=== PATIENT | male | born 1935 | race Caucasian/White ===

== ENCOUNTER → 2020-12-18 | Outpatient (CLI) | payer MEDICARE | LOC: KOH-I 10:06 | DX: M25.561 Pain in right knee (principal); I25.10 Atherosclerotic heart disease of native coronary artery without angina pectoris; I10 Essential (primary) hypertension; E03.9 Hypothyroidism, unspecified; E66.9 Obesity, unspecified; M17.9 Osteoarthritis of knee, unspecified; Z95.0 Presence of cardiac pacemaker; E11.9 Type 2 diabetes mellitus without complications; Z79.4 Long term (current) use of insulin; M17.11 Unilateral primary osteoarthritis, right knee; M25.461 Effusion, right knee | CPT/HCPCS: 73564 ==

== ENCOUNTER → 2021-08-13 | Outpatient (CLI) | payer MEDICARE | LOC: KOH-I 08:00 | DX: R31.9 Hematuria, unspecified (principal); R41.82 Altered mental status, unspecified; N20.1 Calculus of ureter | CPT/HCPCS: 74176 ==

== ENCOUNTER → 2021-08-27 | Outpatient (CLI) | payer MEDICARE | LOC: KOH-I 08-21 10:00 | DX: R41.82 Altered mental status, unspecified (principal); R93.0 Abnormal findings on diagnostic imaging of skull and head, not elsewhere classified | CPT/HCPCS: 70450 ==

== ENCOUNTER → 2021-09-17 | Outpatient (CLI) | payer MEDICARE | LOC: CT 13:37 | DX: R93.0 Abnormal findings on diagnostic imaging of skull and head, not elsewhere classified (principal) | CPT/HCPCS: 36415; 70496; 82565; Q9965 ==

== ENCOUNTER 2021-09-24 13:15 | Emergency (ER) | payer MEDICARE ==
[2021-09-24 17:14] LABS: HEMOGLOBIN 12.6 gm/dl (14.0-17.5); RED BLOOD COUNT 4.36 M/UL (4.20-5.50)
== END 2021-09-24 19:43 | disposition home or self-care (01) ==
LOC: ER1 13:15
PROVIDERS: Nurse Practitioner
DX: R29.898 Other symptoms and signs involving the musculoskeletal system (principal); I51.9 Heart disease, unspecified; E10.9 Type 1 diabetes mellitus without complications; Z88.5 Allergy status to narcotic agent; Z95.0 Presence of cardiac pacemaker; I25.2 Old myocardial infarction; Z95.1 Presence of aortocoronary bypass graft
CPT/HCPCS: 72132; 80053; 81001; 85025; 99284; Q9967

== ENCOUNTER → 2021-10-10 | Outpatient (CLI) | payer MEDICARE | LOC: LAB 12:25 | DX: N40.1 Benign prostatic hyperplasia with lower urinary tract symptoms (principal); N39.498 Other specified urinary incontinence; N20.1 Calculus of ureter; K59.00 Constipation, unspecified | CPT/HCPCS: 36415; 74018; 84153 ==

== ENCOUNTER 2021-11-26 18:42 | Emergency (ER) | payer MEDICARE ==
[~2021-11-26 18:42] MED LIST: ACETAMINOPHEN325 MG PO; AMARYL1 MG PO; ASPIRIN EC81 MG PO; BACTRIM DS TAB1 EACH PO; COREG12.5 MG PO; FLOMAX 0.4 MG0.4 MG PO; LANTUS100 UNIT/1 SC; LEVOTHYROXINE150 MCG PO; LEXAPRO10 MG PO; LYRICA75 MG PO; NORVASC5 MG PO; OMEPRAZOLE40 MG PO; PRAVASTATIN SOD40 MG PO; PROAIR HFA8.5 GM INH; RISPERDAL 0.20.25 MG PO; TRAMADOL HCL50 MG PO; TRULICITY0.75 MG/0. SQ; ZESTRIL10 MG PO
[2021-11-26 20:14] LABS: HEMOGLOBIN 12.5 gm/dl (14.0-17.5); RED BLOOD COUNT 4.27 M/UL (4.20-5.50)
[2021-11-27] MEDS ORDERED: OMNICEF 300 MG300 MG PO (01:25)
== END 2021-11-27 02:57 | disposition home or self-care (01) ==
LOC: ER1 18:42
PROVIDERS: Emergency Medicine
DX: N30.90 Cystitis, unspecified without hematuria (principal); I13.0 Hypertensive heart and chronic kidney disease with heart failure and stage 1 through stage 4 chronic kidney disease, or unspecified chronic kidney disease; I50.9 Heart failure, unspecified; J44.9 Chronic obstructive pulmonary disease, unspecified; Z88.5 Allergy status to narcotic agent; Z20.822 Contact with and (suspected) exposure to COVID-19
CPT/HCPCS: 0240U; 71045; 80053; 82550; 82553; 83605; 83690; 83735; 83880; 84100; 84484; 85025; 87040; 93005; 96374; 96375; 99284; J0696; J2405; Q9967

== ENCOUNTER 2021-12-16 08:47 | Inpatient (IN) | payer MEDICARE ==
[~2021-12-16] VITALS: Ht 182.9 cm; Wt 89.8 kg
[~2021-12-16 08:47] MED LIST changes: -LANTUS100 UNIT/1 SC; +LANTUS100 UNIT/1 SQ; +OMNICEF 300 MG300 MG PO
[2021-12-16 09:28] LABS: HEMOGLOBIN 12.7 gm/dl (14.0-17.5); RED BLOOD COUNT 4.28 M/UL (4.20-5.50); WHITE BLOOD COUNT 7.3 K/UL (4.5-11.0)
[2021-12-16] MEDS ORDERED: RISPERDAL4 MG PO (13:15)
[2021-12-16] MEDS ORDERED: FINASTERIDE5 MG PO (13:17)
[2021-12-17 03:18] LABS: HEMOGLOBIN 12.2 gm/dl (14.0-17.5); RED BLOOD COUNT 4.17 M/UL (4.20-5.50); WHITE BLOOD COUNT 6.2 K/UL (4.5-11.0)
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
[2021-12-20] MEDS ORDERED: OMNICEF 300 MG300 MG PO (12:06)
[2021-12-20] MEDS ORDERED: DONEPEZIL HCL5 MG PO (12:06)
[2021-12-20] MEDS ORDERED: FLOMAX 0.4 MG0.4 MG PO (13:08)
[2021-12-20] MEDS ORDERED: FINASTERIDE5 MG PO (13:08)
== END 2021-12-20 13:24 | disposition home health service (06) | DRG 177 ==
LOC: ER1 08:47 → CDU 12:44 → MED SURG 4 12:44
PROVIDERS: Physician Assistant Medical; Student in an Organized Health Care Education/Training Program; ADMIT Internal Medicine
DX: J69.0 Pneumonitis due to inhalation of food and vomit (principal); J96.01 Acute respiratory failure with hypoxia; N30.00 Acute cystitis without hematuria; Z20.822 Contact with and (suspected) exposure to COVID-19; I13.0 Hypertensive heart and chronic kidney disease with heart failure and stage 1 through stage 4 chronic kidney disease, or unspecified chronic kidney disease; Z66 Do not resuscitate; I49.5 Sick sinus syndrome; F03.90 Unspecified dementia, unspecified severity, without behavioral disturbance, psychotic disturbance, mood disturbance, and anxiety; J44.9 Chronic obstructive pulmonary disease, unspecified; I50.9 Heart failure, unspecified; R53.81 Other malaise; N18.30 Chronic kidney disease, stage 3 unspecified; E11.22 Type 2 diabetes mellitus with diabetic chronic kidney disease; W06.XXXA Fall from bed, initial encounter; R29.6 Repeated falls; I25.10 Atherosclerotic heart disease of native coronary artery without angina pectoris; Z95.1 Presence of aortocoronary bypass graft; Z79.01 Long term (current) use of anticoagulants; Z79.82 Long term (current) use of aspirin; Z98.42 Cataract extraction status, left eye; Z98.41 Cataract extraction status, right eye; Z98.890 Other specified postprocedural states; Z87.891 Personal history of nicotine dependence; Z82.49 Family history of ischemic heart disease and other diseases of the circulatory system; Z83.3 Family history of diabetes mellitus; Z99.81 Dependence on supplemental oxygen; Y92.009 Unspecified place in unspecified non-institutional (private) residence as the place of occurrence of the external cause
CPT/HCPCS: 36415; 70450; 71045; 72125; 80048; 80053; 81001; 82550; 82553; 82962; 83735; 84484; 85025; 85027; 92526; 92610; 97110; 97110-GP-CQ; 97116-GP-CQ; 97162; 97166; 97530-GP-CQ; 99285; G0378; J0360; J0696; J1200; J1335; J1650; J3486

== ENCOUNTER 2022-02-24 01:00 | Inpatient (IN) | payer MEDICARE ==
[~2022-02-24] VITALS: Ht 185.4 cm; Wt 81.6 kg
[~2022-02-24 01:00] MED LIST changes: +8 HOUR PAIN RE650 MG PO; -ACETAMINOPHEN325 MG PO; +DONEPEZIL HCL5 MG PO; +FINASTERIDE5 MG PO; +RISPERDAL4 MG PO
[2022-02-24 01:46] LABS: HEMOGLOBIN 13.5 gm/dl (14.0-17.5); RED BLOOD COUNT 4.4 M/UL (4.20-5.50); WHITE BLOOD COUNT 5.9 K/UL (4.5-11.0)
[2022-02-24 02:10] LABS: BUN/CREATININE RATIO 30 (0-10)
[2022-02-24] MEDS ORDERED: ZINC OXIDE60 GM TOP (10:40)
[2022-02-24] MEDS ORDERED: LACTULOSE10 GM/15 M PO (10:41)
[2022-02-24] MEDS ORDERED: MYCOSTATIN100000 UTS PO (10:41)
[2022-02-24] MEDS ORDERED: ALBUTEROL2.5 MG/3 M INH (10:42)
[2022-02-24] MEDS ORDERED: NOVOLOG FL100 UNIT/1 INJ (10:43)
[2022-02-24] MEDS ORDERED: SODIUM CHLORIDE3 ML INH (10:44)
[2022-02-25 03:52] LABS: HEMOGLOBIN 11.9 gm/dl (14.0-17.5); RED BLOOD COUNT 3.98 M/UL (4.20-5.50); WHITE BLOOD COUNT 5.5 K/UL (4.5-11.0)
[2022-02-26 02:19] LABS: HEMOGLOBIN 12.2 gm/dl (14.0-17.5); RED BLOOD COUNT 4.06 M/UL (4.20-5.50); WHITE BLOOD COUNT 5.3 K/UL (4.5-11.0)
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
[2022-02-27 13:09] LABS: ORGANISM ID Not indicated. (.); SPECIMEN SOURCE Urine (.); STREPTOCOCCUS PNEUMONIAE AG Negative (Negative)
== END 2022-02-26 14:10 | disposition expired | DRG 177 ==
LOC: ER1 01:00 → PROG CARE 05:42 → CDU 05:42 → PROG CARE 22:35
PROVIDERS: Internal Medicine; Student in an Organized Health Care Education/Training Program; ADMIT Internal Medicine
PROC: 5A0935A Assistance with Respiratory Ventilation, Less than 24 Consecutive Hours, High Flow/Velocity Cannula (ICD-10-PCS; principal; 2022-02-24)
PROC: 3E033XZ Introduction of Vasopressor into Peripheral Vein, Percutaneous Approach (ICD-10-PCS; 2022-02-24)
PROC: 5A0935A Assistance with Respiratory Ventilation, Less than 24 Consecutive Hours, High Flow/Velocity Cannula (ICD-10-PCS; 2022-02-26)
PROC: 5A09357 Assistance with Respiratory Ventilation, Less than 24 Consecutive Hours, Continuous Positive Airway Pressure (ICD-10-PCS; 2022-02-26)
DX: J69.0 Pneumonitis due to inhalation of food and vomit (principal); G93.41 Metabolic encephalopathy; J96.21 Acute and chronic respiratory failure with hypoxia; J96.22 Acute and chronic respiratory failure with hypercapnia; R47.01 Aphasia; F03.90 Unspecified dementia, unspecified severity, without behavioral disturbance, psychotic disturbance, mood disturbance, and anxiety; Z66 Do not resuscitate; I25.10 Atherosclerotic heart disease of native coronary artery without angina pectoris; K21.9 Gastro-esophageal reflux disease without esophagitis; E03.9 Hypothyroidism, unspecified; I12.9 Hypertensive chronic kidney disease with stage 1 through stage 4 chronic kidney disease, or unspecified chronic kidney disease; N18.30 Chronic kidney disease, stage 3 unspecified; E11.22 Type 2 diabetes mellitus with diabetic chronic kidney disease; I49.5 Sick sinus syndrome; Z96.652 Presence of left artificial knee joint; E78.5 Hyperlipidemia, unspecified; Z96.662 Presence of left artificial ankle joint; Z20.822 Contact with and (suspected) exposure to COVID-19; L89.156 Pressure-induced deep tissue damage of sacral region; L89.322 Pressure ulcer of left buttock, stage 2; N40.1 Benign prostatic hyperplasia with lower urinary tract symptoms; R33.8 Other retention of urine; J44.9 Chronic obstructive pulmonary disease, unspecified; T17.990A Other foreign object in respiratory tract, part unspecified in causing asphyxiation, initial encounter; R13.10 Dysphagia, unspecified; Z95.1 Presence of aortocoronary bypass graft; Z95.0 Presence of cardiac pacemaker; Z74.01 Bed confinement status; Z86.73 Personal history of transient ischemic attack (TIA), and cerebral infarction without residual deficits; Z90.49 Acquired absence of other specified parts of digestive tract; Z79.82 Long term (current) use of aspirin; Z82.49 Family history of ischemic heart disease and other diseases of the circulatory system; Z83.3 Family history of diabetes mellitus; Z87.891 Personal history of nicotine dependence; Z98.41 Cataract extraction status, right eye; Z98.42 Cataract extraction status, left eye; Z79.899 Other long term (current) drug therapy; Z79.4 Long term (current) use of insulin; Z99.81 Dependence on supplemental oxygen
CPT/HCPCS: 0241U; 36415; 36600; 70450; 71045; 80048; 80053; 81001; 82550; 82553; 82803; 82962; 83605; 84439; 84443; 84484; 85025; 87040; 87077; 87081; 87086; 87186; 87278; 87899; 92526; 92610; 93005; 94640; 94760; 96374; 96375; 96376; 99285; J0696; J1644; J2543; Q9967